=== PATIENT | female | born 1940 | race Caucasian/White ===

== ENCOUNTER 2023-07-20 12:40 | Outpatient (OUT) | payer MEDICARE, SELFPAY ==
--- NOTE | 2023-07-20 | US_ITS ---
The [address] [address] Patient Name: JITENDRA PONCE MRN: [id number] date: 1940 Sex: F Assigned Patient Location: [place] Current Patient Location: US Accession/Order Number: [id number] Exam Date: 07/20/2023 13:20 Report Date: 07/20/2023 15:01 At the request of: YOUNG JOSE Procedure: US venous doppler LE RT EXAM: US venous doppler LE RT HISTORY: Right calf pain COMPARISON: None. TECHNIQUE: Grayscale, color and Doppler FINDINGS: Region: Right leg Thrombus: None Flow: Normal Augmentation: Normal Compressibility: Normal Identified to correspond to the patient's palpable abnormality, right prieto, is a focal 4.3 x 2.0 x 0.9 cm complex fluid collection, nonspecific. No internal blood flow with scattered septations/low-level echoes US/US venous doppler LE RT IMPRESSION: No deep or superficial vein thrombus identified in the right leg 4.3 cm complex fluid collection anterior prieto, possibly representing a hematoma Electronically authenticated by: YOON NEWMAN Date: 07/20/2023 15:01
== END 2023-07-20 12:41 | disposition home or self-care (01) ==
PROVIDERS: Family Provider Internal Medicine; PCP Internal Medicine; Visit Provider Personal Emergency Response Attendant
DX: M79.661 Pain in right lower leg (principal)
CPT/HCPCS: 93971